=== PATIENT | male | born 2000 | race Caucasian/White ===

== ENCOUNTER 2021-07-11 15:41 | Emergency (ER) | payer OTHER, SELFPAY ==
[2021-07-11 15:48] VITALS: BP 129/77; PULSE 66; RESP 16; TEMP 36.4; O2SAT 100
--- NOTE | 2021-07-11 16:44 | ED.URI ---
HPI - URI/Sore Throat General Chief Complaint: Upper Respiratory Infection Stated Complaint: Sore Throat/Vomiting Time Seen by Provider: 07/11/21 16:15 Source: patient, RN notes reviewed and old records reviewed Mode of arrival: ambulatory Limitations: no limitations History of Present Illness HPI Narrative: 20-year-old male who presents to [facility] with 5 to 6 days of sore throat and left ear discomfort some nasal drainage and intermittent fevers up to 100.8. Patient states that he does have some upper epigastric discomfort and has been told in the past that he has an ulcer and does take Prilosec daily, has a history of anxiety is on citalopram and Vistaril.He is a daily tobacco user of 1 1/2 packs of cigarettes daily and did quit cigarettes for a while and started vaping but went back to cigarettes. Patient states that he does have some intermittent nausea with vomiting, denies any blood or bilious emesis. Patient reports that he has not taken any OTC meds for his sore throat or reported fevers. MD elicited complaint: sore throat Onset (ago): day(s) (5-6) Consistency: constant Description of mucous: clear Able to tolerate fluids by mouth: Yes Exacerbating factors: swallowing Related Data Home Medications Medication Instructions Recorded Confirmed citalopram 20 mg PO DAILY 07/11/21 07/11/21 hydroxyzine HCl 25 mg PO TID 07/11/21 07/11/21 Allergies Allergy/AdvReac Type Severity Reaction Status Date / Time No Known Allergies Allergy Verified 07/11/21 16:45 Review of Systems Review of Systems: CONSTITUTIONAL:reports fever, chills, or sweats. EYES: Denies visual changes, redness, or discharge. ENT: reports rhinorrhea, congestion, sore throat, left otalgia. CARDIOVASCULAR: Denies chest pain, palpitations, or edema. RESPIRATORY: Denies cough or dyspnea. GASTROINTESTINAL:reports some epigastric discomfort no other abdominal pain,positive for complaints of nausea, vomiting, no diarrhea. GENITOURINARY: Denies dysuria or hematuria. SKIN: Denies rash or itching. MUSCULOSKELETAL: Denies back pain, joint pain, or myalgia. NEUROLOGIC: Denies headache, numbness, or weakness. PSYCHIATRIC: Positive for anxiety or depression. All systems reviewed & are unremarkable except as noted in HPI and below PMFSH Past Medical History Medical History (Updated 07/12/21 @ 11:23 by Ngozi Shell NP) Anxiety Injury of spleen football not removed Social History Social History (Updated 07/12/21 @ 11:15 by Ngozi Shell NP) Smoking status: Current every day smoker Tobacco type: cigarettes Alcohol intake: unknown Substance use: unknown Living arrangements: with family Gender identity (if verbalized by the patient): Male Comments At time of signature, agree with nursing past medical, surgical, social and family history. There is no relevant family history pertinent to the presenting complaint Exam Narrative: GENERAL: Well-appearing, well-nourished, and in no acute distress. HEAD: Normocephalic, atraumatic. EYES: PERRLA and EOMI. ENT: Nares with minimal redness some clear rhinorrhea no epistaxis. Mucous membranes moist.TM's normal with good light reflex, throat red with no lesions or exudates, mild tonsil swelling report increase pain with swallowing. NECK: Supple.no lymphadenopathy CHEST: Clear to auscultation. No respiratory distress.SAO2 100% on room air HEART: Regular rate and rhythm. No murmur heard. Normal peripheral pulses. ABDOMEN: Soft, nontender on palpation, nondistended, normal active bowel sounds.no CVA tenderness EXTREMITIES: Normal range of motion. No edema. SKIN: Warm, dry, no rash. NEURO: No focal deficits. Alert and oriented x3. Course Course Level of Care: Express Care Visit Vital Signs Vital signs: Vital Signs Temperature 36.4 C L 07/11/21 15:48 Pulse Rate 66 07/11/21 15:48 Respiratory Rate 16 07/11/21 15:48 Blood Pressure 129/77 07/11/21 15:48 Pulse Oximetry 100 07/11/21 15:48
== END 2021-07-11 17:09 | disposition home or self-care (01) ==
PROVIDERS: Emergency Provider Registered Nurse; PCP Physician Assistant
DX: J06.9 Acute upper respiratory infection, unspecified (principal); J02.9 Acute pharyngitis, unspecified; R11.2 Nausea with vomiting, unspecified; F17.210 Nicotine dependence, cigarettes, uncomplicated; F41.9 Anxiety disorder, unspecified
CPT/HCPCS: 87081; 87880; 99203; G0463

== ENCOUNTER 2024-04-22 13:30 | Emergency (ER) | payer OTHER, SELFPAY ==
[2024-04-22 13:35] VITALS: BP 156/78; PULSE 72; RESP 16; TEMP 37.2; O2SAT 98
--- NOTE | 2024-04-22 14:00 | ED.NAVMDI ---
HPI - Nausea/Vomiting/Diarrhea General Chief complaint: Nausea/Vomiting/Diarrhea Stated complaint: nausea Time Seen by Provider: 04/22/24 14:00 Source: patient and RN notes reviewed Mode of arrival: ambulatory Limitations: no limitations History of Present Illness HPI Narrative: [age] year old male presented for complaint of nausea and vomiting. Onset yesterday. Reports mild symptoms today; vomited some bile. He endorses a history of nausea and vomiting which he says has been improved for a while. He had endoscopy in March, and was told due to food contents in the stomach, he needs to have another in June. Patient denies abdominal pain, fever, hematochezia or melena. Has not tried to eat today. Smokes marijuana. Related Data Home Medications ?Medication ?Instructions ?Recorded ?Confirmed ?Last Taken ?Type hydroxyzine HCl 25 mg tablet mg 04/22/24 Unknown History Allergies Allergy/AdvReac Type Severity Reaction Status Date / Time No Known Allergies Allergy Verified 04/22/24 13:40 Review of Systems Review of Systems: CONSTITUTIONAL: Denies body aches, fever, chills ENT: Denies rhinorrhea, congestion CARDIOVASCULAR: Denies chest pain, palpitations, or edema. RESPIRATORY: Denies cough or dyspnea. GASTROINTESTINAL: Endorses abdominal pain, nausea, vomiting, diarrhea. Denies hematochezia, melena, hematemesis GENITOURINARY: Denies dysuria, hematuria, or CVA tenderness. SKIN: Denies rash, itching, or wounds. MUSCULOSKELETAL: Denies back pain, joint pain, or myalgia. NEUROLOGIC: Denies headache, numbness, tingling, or weakness. All systems reviewed & are unremarkable except as noted in HPI and below PMFSH Past Medical History Medical History Trichotillomania OCD (obsessive compulsive disorder) Peptic ulcer Chronic GERD Injury of spleen football not removed Anxiety Family History Family History Father Asthma Sibling Asthma Depression Grandparent Asthma Hypertension Grandparent Diabetes mellitus Depression Social History Social History (Updated 04/22/24 @ 14:15 by Linnette Zuluaga APRN) Smoking status: Current every day smoker Tobacco type: cigarettes Alcohol intake: current Drinks per week: 24 Alcohol use details: 12 pack couple times a week Substance use: current Substance use type: marijuana Lack of Transportation: No Lack of Food: Never True Current Housing: I Have Housing Concerned About Future Housing: No Difficulty Paying Gas/Electric Bills: No Difficulty Paying for Meds: No Currently Unemployed: No Education: High School Diploma/GED Difficulty w/ Childcare or Family Care: No Living arrangements: with family Occupation/Education: occupation 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 Please see nursing chart for further information. There is no relevant family history pertinent to the presenting complaint Exam Narrative: GENERAL: Well-appearing, and in no acute distress. EYES: EOMI. Conjunctivae normal. ENT: Mucous membranes pink and moist. CHEST: No respiratory distress. Clear to auscultation. HEART: Regular rate and rhythm. No murmur appreciated. Normal peripheral pulses. ABDOMEN: abd soft, nondistended, normal active bowel sounds. Tender across lower abdomen; No guarding, rebound tenderness, asymmetry EXTREMITIES: Normal range of motion. No edema. SKIN: Warm, dry, no rash. Capillary refill normal. Normal skin turgor. NEURO: No focal deficits. Alert and oriented x3. PSYCH: Normal affect. Course Course Emergency Course: Patient is aware of diagnosis, understands and agrees to treatment plan. Anticipatory guidance given. Patient agrees to follow-up as directed and is aware of reasons to seek care at the emergency department. Portions of this record may have been created with voice recognition software Level of Care: Express Care Visit Vital Signs Vital signs: Vital Signs Temperature 98.9 F 04/22/24 13:35 Pulse Rate 72 04/22/24 13:35 Respiratory Rate 16 04/22/24 13:35 Blood Pressure 156/78 H 04/22/24 13:35 Pulse Oximetry 98 04/22/24 13:35 Oxygen Delivery Room Air 04/22/24 13:35 Temperature 98.9 F 04/22/24 13:35 Pulse Rate 72 04/22/24 13:35 Respiratory Rate 16 04/22/24 13:35 Blood Pressure 156/78 H 04/22/24 13:35 Pulse Oximetry 98 04/22/24 13:35 Oxygen Delivery Room Air 04/22/24 13:35 MDM - Nausea/Vomiting/Diarrhea MDM Narrative Medical decision making narrative: Discussed physical exam findings, rx ondansetron. He says he has 'stomach medicine' at the house, he thinks it is prilosec or pepcid and will resume taking the medicine. Advised supportive measures and signs/symptoms to go to the ER. Pt is appropriate for outpt treatment and f/u. Differential Diagnosis Differential diagnosis: Likely food poisoning, gastroenteritis, drug-induced nausea and vomiting, dehydration and other Discharge Plan Discharge Clinical Impression: Nausea & vomiting Patient Disposition: Home, Self-Care Condition: Stable Instructions: Antibiotic Form, Acute Nausea and Vomiting (ED) Additional Instructions: Stay hydrated. Take small sips of fluid containing electrolytes frequently. Clear liquids (broth, jello, tea, sprite, pedialyte) slowly advance as tolerated to [place] foods (bananas, rice, applesauce, toast, crackers) Avoid fatty, greasy, fried or spicy foods. Limit dairy until symptoms are improved. Ondansetron as needed for nausea. Take the medicine previously prescribed to you for stomach. You should go to the hospital if you experience persistent nausea and vomiting that does not resolve and does not allow you to tolerate any food or fluids, fevers, increasing abdominal pain, persistent diarrhea, or for any other concerns. Follow up with primary care provider in 3 days. Patient Language: Swedish Prescriptions: New ondansetron 4 mg tablet,disintegrating 4 mg PO Q8H PRN (Reason: nausea and vomiting) Qty: 12 0RF No Action hydroxyzine HCl 25 mg tablet omeprazole 40 mg capsule,delayed release(DR/EC) 40 mg PO DAILY Qty: 30 1RF Follow-up/Referrals: PHYSICIAN,TIRE INSPECTOR [Primary Care Provider] - Stand Alone Forms: Work/School Release IP Time of Disposition: 14:09
== END 2024-04-22 14:15 | disposition home or self-care (01) ==
PROVIDERS: Emergency Provider Nurse Practitioner Family
DX: R11.2 Nausea with vomiting, unspecified (principal); F17.210 Nicotine dependence, cigarettes, uncomplicated; K21.9 Gastro-esophageal reflux disease without esophagitis
CPT/HCPCS: 99213; G0463

== ENCOUNTER 2024-06-04 16:01 | Emergency (ER) | payer OTHER, SELFPAY ==
[2024-06-04 16:06] VITALS: BP 149/84; PULSE 73; RESP 20; TEMP 36.6; O2SAT 100
[2024-06-04 16:25] LABS: EDSTREPNEGPOS1 Negative (Negative)
[2024-06-04 16:34] LABS: EDCOVIDSCREEN Negative (Negative); EDINFLUASCREEN Negative (Negative); EDINFLUBSCREEN Negative (Negative)
--- OUTSIDE RECORDS SUMMARY | 2024-06-04 16:48 | XMS_ITS | Clinical Summary ---
Author Organization [facility] Address [address] [place] [address] Phone Care Team Providers Care Solar Energy Systems Designer Name Role Phone Latasha Bates [facility] Primary Care Pro vider Allergies No known active allergies Medications omeprazole (PriLOSEC) 20 MG CAPSULE DELAYED RELEASE Take 2 Capsules by mouth daily. 120 Capsule 3 08/29/2023 Active famotidine (PEPCID) 20 MG Tablet Take 1 Tablet by mouth 2 times daily. 90 Tablet 3 08/29/2023 Active hydrOXYzine (ATARAX) 25 MG Tablet TAKE 1 TABLET BY MOUTH EVERY 6 HOURS NEEDED FOR ANXIETY 120 Tablet 1 03/04/2024 Active Active Problems Problem Noted Date Diagnosed Date Suicidal thoughts 08/29/2023 Self-mutilation 08/29/2023 Coffee ground emesis 08/29/2023 Gastric ulcer 08/29/2023 Gastroesophageal reflux disease 08/29/2023 Sleep deprivation 08/29/2023 Anxiety Depressed Ruptured spleen Immunizations Immunization Administration Dates Next Due DTAP VACCINE 09/19/2003, 1,03/22/1999,01/18,1998 Hepatitis A Vaccine 09/06/2013 Hepatitis A Vaccine, Pediatric/adolescent, 2 Dose Schedule 09/04/2012 Hepatitis B Vaccine, Pediatric/adolescent 10/15/1999,06/26/1999,1998 Hib Vaccine,unspecified Formulation 12/22,03/22/1999,01/18/1999,11/16 Human Papillomavirus Vaccine (HPV), quadrivalent 03/18/2013,03/15/2013,11/13/2012,09/04 Inactivated Polio Vaccine 09/19/2003,,01/18/1999,11/16 Influenza Vaccine Nasal 01/12/2010 Influenza Vaccine Quadrivalent Nasal 11/05/2013, 11/13/2012 Influenza Vaccine, Quadrivalent, PF 11/24/2015 Influenza Vaccine,unspecifie d Formulation 02/07/2007,02/28/2006,01/25/2006 MMR Vaccine 09/20/2002,01/17/2000 Meningococcal C Conjugate Vaccine 2009 Meningococcal MCV4O 09/30/2014 Pneumococcal Vaccine Peds - 7 Valent 10/16/2000 TDAP Vaccine 2009 Varicella Vaccine Live 09/18/2007,09/20/2002 Family History Medical History Relation Name Comments Diabetes Mother Hypertension Mother Relation Name Status Comments Father Alive Mother Alive Social History Tobacco Use Types Packs/Day Years Used Date Smoking Tobacco: Every Day Cigarettes Smokeless Tobacco: Never Tobacco Cessation:Ready to Q uit: No; Counseling Given: No Alcohol Use Standard Drinks/Week Comments Yes 0 (1 standard drink = 0.6 oz pur e alcohol) occasionally Sex and Gender Information Value Date Recorded Sex Assigned at Not on file Legal Sex Male 5:43 PM CDT Gender Identity Not on file Sexual Orientation Not on file Last Filed Vital Signs Vital Sign Reading Time Taken Comments Blood Pressure 114/78 10/13/2023 8:39 AM CDT Pulse 76 10/13/2023 8:39 AM CDT Temperature 36.3 C (97.3 F) 10/13/2023 8:39 AM CDT Respiratory Rate 12 10/13/2023 8:39 AM CDT Oxygen Saturation 98% 10/13/2023 8:39 AM CDT Inhaled Oxygen Concentration - - Weight 83 kg (183 lb) 10/13/2023 8:39 AM CDT Height 180.3 cm (5' 11 ) 08/29/2023 8:24 AM CDT Body Mass Index 25.52 08/29/2023 8:24 AM CDT Plan of Treatment Health Maintenance Due Date Last Done Comments Hepatitis C Virus (HCV) Screening 1998 Pneumococcal Immunization Combined (1 of 2 - PCV) 2017 10/16/2000 DTaP/Tdap/Td Immunization (7 - Td or Tdap) 09/17/2019 2009, 09/19/2003, 04/17/2000, Additional history exists SARS-COV-2 Immunization ( - 2023- season) 2023 Influenza Immunization (Season Ended) 2024 11/24/2015, 11/05/2013, 11/13/2012, Additional history exists Respiratory Syncytial Virus (RSV) Immunization (Adult) (1 - 1-dose 75+ series) 2073 Hepatitis B Immunization Completed 000, 06/26/1999, 1998 TdaP Immunization Discontinued 2009 Human Papillomavirus (HPV) Immunization Completed 03/18/2013, 03/15/2013, 11/13/2012, Additional history exists Meningococcal Immunization (ACWY) Completed 09/30/2014 Rotavirus Immunization Aged Out No lo nger eligible based on patient's age to complete this topic Procedures Procedure Name Priority Date/Time Associated Diagnosis Comments EGD 04/03/2024 12:00 AM SUPPLY ROOM CLERK from Last 3 Months Results * EGD (04/03/2024 12:00 AM SUPPLY ROOM CLERK) Anatomical Region Laterality Modality Endoscopy 04/03/2024 Latasha Bates PAC GI PROCEDURE REAL HERBERT Final Result from Last 3 Months Insurance [employer] SOI Member Subscriber Plan / Payer (Ef fective 2023-Present) Name:Matt Flowers Jr. Relation to Subscriber:Self Name:Matt Flowers Jr. Payer ID:[id number] (NAIC) Type:Not on file Address: [facility] [id number] [place] [id number] Care Teams Solar Energy Systems Designer Relationship Specialty Start Date End Date Latasha Bates, THOMAS [address] [address] PCP - General Physician Drivers License Examiner 08/29/23
--- OUTSIDE RECORDS SUMMARY | 2024-06-04 16:48 | XMS_ITS | Clinical Summary ---
Author Organization [facility] Address [address] [place] [address] Care Team Providers Care Real Estate Asset Manager Name Role Phone Diandra Galvan MD Primary Care Provider [phone] Source Comments [facility],non-owned Affiliates and Associated Physician Practices is amultiple site organization consisting of ambulatory clinics and hospital sitesin [place], [place], [place] and [place]. This disclosure is being madepursuant to the Care Everywhere program and may not contain all information available regarding this patient. Last updated 17.[facility] Allergies No known active allergies Medications * Be aware that medications may not be up to date on this document. Alwaysverify current medications with the patient. No known medications Active Problems Problem Noted Date Diagnosed Date Martínez's cyst of knee, right 03/23/2018 Acute pain of right knee 03/23/2018 Social History Tobacco Use Types Packs/Day Years Used Date Smoking Tobacco: Every Day Cigarettes 2 3 Smokeless Tobacco: Never Sex and Gender Information Value Date Recorded Sex Assigned at Not on file Legal Sex Male 10:44 AM CDT Gender Identity Not on file Sexual Orientation Not on file Last Filed Vital Signs Vital Sign Reading Time Taken Comments Blood Pressure 122/62 03/23/2018 10:42 AM UI ARCHITECT Pulse 76 03/23/2018 10:42 AM UI ARCHITECT Temperature 36.7 C (98 F) 03/23/2018 10:42 AM UI ARCHITECT Respiratory Rate - - Oxygen Saturation - - Inhaled Oxygen Concentration - - Weight 79.6 kg (175 lb 8 oz) 03/23/2018 10:42 AM UI ARCHITECT Height 180.3 cm (5' 11 ) 03/23/2018 10:42 AM UI ARCHITECT Body Mass Index 24.48 03/23/2018 10:42 AM UI ARCHITECT Plan of Treatment Health Maintenance Due Date Last Done Comments HIV SCREENING 2013 HPV VACCINE (1 - Male 3-dose series) 2013 HEPATITIS C SCREENING 09/11/2016 DTAP/TDAP/TD VACCINES (1 - Tdap) 2017 HEPATITIS B VACCINE (1 of 3 - 19+ 3-dose series) 2017 COVID-19 VACCINE (1 - 2023-2 5 season) 2023 DEPRESSION SCREENING 02/21/2024 INFLUENZA VACCINE (Season Ended) 2024 ZOSTER VACCINE (1 of 2) 2048 HIB VACCINE Aged Out No longer eligi ble based on patient's age to complete this topic MENINGOCOCCAL (Group B) VACC INE SHARED DECISION-MAKING Aged Out No longer eligibl e based on patient's age to complete this topic MENINGOCOCCAL GROUPS A/C/Y/W VACCINE Aged Out No longer eligible b ased on patient's age to complete this topic PNEUMOCOCCAL VACCINE Aged Out No long er eligible based on patient's age to complete this topic [place] [address] [place] [address] [facility] Care Teams Real Estate Asset Manager Relationship Specialty Start Date End Date Diandra Galvan MD [address] [address] PCP - General 03/23/18
--- NOTE | 2024-06-04 16:51 | ED_ITS ---
HPI - URI/Sore Throat General Chief Complaint: Upper Respiratory Infection Stated Complaint: n/v/sore throat/chest hurts when coughing Time Seen by Provider: 06/04/24 16:30 Source: patient, RN notes reviewed and old records reviewed Mode of arrival: ambulatory Limitations: no limitations History of Present Illness HPI Narrative: 23 year old male presents to [facility] with complaints of vomiting this morning but has not had any further emesis since then. He states that he also started with sore throat, cough and chest congestion this morning. Patient reports that his mucous is clear in color when he is able to expectorate phlegm. Patient reports general malaise, denies any chills or body aches reports no known fevers. Patient reports he works [employer] at [employer] and had to call off he needs work note. MD elicited complaint: cough and sore throat Pertinent past history: other (history of strep throat, GERD) Onset (ago): day(s) (today this morning) Severity: moderate Description of mucous: clear Able to tolerate fluids by mouth: Yes Treatments prior to arrival: none Related Data Home Medications ?Medication ?Instructions ?Recorded ?Confirmed ?Last Taken ?Type hydroxyzine HCl 25 mg tablet mg 04/22/24 Unknown History Allergies Allergy/AdvReac Type Severity Reaction Status Date / Time No Known Allergies Allergy Verified 06/04/24 16:18 Review of Systems Review of Systems: CONSTITUTIONAL: Reports malaise, no chills, sweats, or fever. EYES: Denies visual changes, redness, or discharge. ENT: Reports rhinorrhea, congestion, no sinus pain,no otalgia and positive for sore throat. CARDIOVASCULAR: Denies chest pain, palpitations, or edema. RESPIRATORY: Reports cough.? Denies dyspnea. GASTROINTESTINAL: Denies abdominal pain, episode of nausea with vomiting this morning, no diarrhea SKIN: Denies rash or itching. MUSCULOSKELETAL: Denies myalgia. NEUROLOGIC: Denies headache. All systems reviewed & are unremarkable except as noted in HPI and below PMFSH Past Medical History Medical History GERD (gastroesophageal reflux disease) Trichotillomania OCD (obsessive compulsive disorder) Peptic ulcer Chronic GERD Injury of spleen football not removed Anxiety Family History Family History Father Asthma Sibling Asthma Depression Grandparent Asthma Hypertension Grandparent Diabetes mellitus Depression Social History Social History Smoking status: Current every day smoker Tobacco type: e-cigarettes/vaping Additional smoking assessment comments: former cigarette smoker now vapes Alcohol intake: current Drinks per week: 24 Alcohol use details: 12 pack couple times a week Substance use: former Substance use type: marijuana Lack of Transportation: No Lack of Food: Never True Current Housing: I Have Housing Concerned About Future Housing: No Difficulty Paying Gas/Electric Bills: No Difficulty Paying for Meds: No Currently Unemployed: No Education: High School Diploma/GED Difficulty w/ Childcare or Family Care: No Living arrangements: with family Occupation/Education: occupation Additional occupation/education comments: [employer] Gender identity (if verbalized by the patient): Male Agree to blood products: Yes Comments At time of signature, agree with nursing past medical, surgical, social and family history. There is no relevant family history pertinent to the presenting complaint Exam Narrative: GENERAL: Well-appearing, well-nourished, and in no acute distress. HEAD: Normocephalic EYES: PERRLA, conjunctivae clear ENT: Nares clear, turbinates edematous and erythematous, clear discharge. Mucous membranes moist. TM pearly young with dull light reflex bilaterally; no tragal t enderness. Oropharynx erythematous without lesions. Tonsils red enlarged and without exudate, no drooling, no hoarseness, no trismus, uvula midline.post nasal drainage noted NECK: Supple. No lymphadenopathy CHEST: Clear to auscultation, breath sounds equal. No wheezing, rhonchi, rales, or stridor. No respiratory distress, speaks in full sentences.cough noted SAO2 100% on room air HEART: Regular rate and rhythm. No murmur heard. SKIN: Warm, dry, no rash. NEURO: Alert and oriented x3. PSYCH: Normal mood and affect Course Course Emergency Course: Patient is aware of diagnosis, understands and agrees to treatment plan.? Anticipatory guidance given.? Patient agrees to follow-up as directed and is aware of reasons to seek care at the emergency department. Portions of this record may have been created with voice recognition software Level of Care: Express Care Visit Vital Signs Vital signs: Vital Signs Temperature 36.6 C 06/04/24 16:06 Pulse Rate 73 06/04/24 16:06 Respiratory Rate 20 06/04/24 16:06 Blood Pressure 149/84 H 06/04/24 16:06 Pulse Oximetry 100 06/04/24 16:06 Oxygen Delivery Room Air 06/04/24 16:06 Temperature 36.6 C 06/04/24 16:06 Pulse Rate 73 06/04/24 16:06 Respiratory Rate 20 06/04/24 16:06 Blood Pressure 149/84 H 06/04/24 16:06 Pulse Oximetry 100 06/04/24 16:06 Oxygen Delivery Room Air 06/04/24 16:06 Reviewed MDM - URI/Sore Throat MDM Narrative Medical decision making narrative: Differential diagnosis considered: Garcia virus, strep pharyngitis, allergic rhinitis, upper respiratory tract infection, sinusitis, rhinosinusitis, nasophar yngitis. viral pharyngitis, otitis media, otitis externa, pneumonia, bronchitis, viral cough syndrome, viral syndrome, and influenza.? Exam findings show no acute concerns or changes; patient is non-toxic appearing and is in no distress.? Patient is appropriate for outpatient treatment and follow-up. Differential Diagnosis Differential diagnosis: Likely upper respiratory infection, viral infection, pharyngitis and other (strep pharyngitis, cough and congestion, nausea with vomiting) Medical Records Attestation: I reviewed the patient's medical records. Lab Data Attestation: I reviewed the patient's lab results. Lab results narrative: Covid antigen negative, Influenza A negative, Influenza B negative, strep screen negative, culture sent Labs: Lab Results 06/04/24 Range/Units 16:16 POC Influenza A Ag Negative (Negative) POC Influenza B Ag Negative (Negative) POC SARS CoV-2 Ag Negative (Negative) POC Grp A Strep Screen Negative (Negative) reviewed Critical Care Time Critical Care Time Critical Care Time: No Discharge Plan Discharge Clinical Impression: URI, acute Acute pharyngitis Qualifiers: Pharyngitis/tonsillitis etiology: unspecified etiology Qualified Code(s): J02.9 - Acute pharyngitis, unspecified Nausea & vomiting Qualifiers: Vomiting type: unspecified Qualified Code(s): R11.2 - Nausea with vomiting, unspecified Patient Disposition: Home Condition: Stable Instructions: Antibiotic Form, Pharyngitis (ED) Additional Instructions: Increase fluids especially juices and water [id number] cough and cold medicine of your choice for your symptoms Tylenol or ibuprofen for any fever pain Continue your nausea medication for any nausea and vomiting heat to the face 20-30 minutes 4-6 times a day for pain Salt water gargles, throat lozenges or throat sprays as desired Antibiotic as directed--Your strep test today was negative. A throat culture will be sent to the laboratory for further testing. if culture is negative you can stop the oral antibiotic, If your symptoms persist, change or worsen significantly before you can contact your personal physician then please, without delay, go to the emergency department for further evaluation. Follow-up with PCP in 7-10 days or sooner if needed Follow up with PCP soon in regards to your blood pressure which is elevated above threshold for referral. Blood pressure above 120/80 may indicate pre- hypertension. 149/84 Patient Language: Indonesian Prescriptions: New amoxicillin 500 mg capsule 500 mg PO Q12H Qty: 20 0RF No Action hydroxyzine HCl 25 mg tablet omeprazole 40 mg capsule,delayed release(DR/EC) 40 mg PO DAILY Qty: 30 1RF Follow-up/Referrals: UNKNOWN,DOCTOR [Primary Care Provider] - Stand Alone Forms: Work/School Release IP Time of Disposition: 17:12 Quality [place] Coma Scale Eyes: Open Verbal: Oriented and Alert Motor: Follows Commands Robin Coma Total Score: 15
== END 2024-06-04 17:18 | disposition home or self-care (01) ==
PROVIDERS: Emergency Provider Registered Nurse
DX: J06.9 Acute upper respiratory infection, unspecified (principal); J02.9 Acute pharyngitis, unspecified; R11.2 Nausea with vomiting, unspecified; Z20.822 Contact with and (suspected) exposure to COVID-19; F17.290 Nicotine dependence, other tobacco product, uncomplicated; K21.9 Gastro-esophageal reflux disease without esophagitis; F63.3 Trichotillomania
CPT/HCPCS: 87081; 87426; 87804; 87880; 99213; G0463

== ENCOUNTER 2024-09-03 11:16 | Emergency (ER) | payer OTHER, SELFPAY ==
[2024-09-03 11:24] VITALS: BP 128/82; PULSE 79; RESP 18; TEMP 36.8; O2SAT 100
--- OUTSIDE RECORDS SUMMARY | 2024-09-03 11:32 | XMS_ITS | Encounter Summary ---
Author Organization [facility] Address [address] [place] [address] Phone Care Team Providers Care Administrator Name Role Phone Latasha Bates PAC Primary Care Pro vider Encounter Details Date Type Department Care Team (Late st Contact Info) Description 07/16/2024 Results Follow-Up [facility] - Primary [facility] Access Clinic [address] [address] Latasha Bates, PAC [address] [place] [address] EGD Social History Tobacco Use Types Packs/Day Years Used Date Smoking Tobacco: Every Day Cigarettes Smokeless Tobacco: Never Alcohol Use Standard Drinks/Week Comments Yes 0 (1 standard drink = 0.6 oz pur e alcohol) occasionally Sex and Gender Information Value Date Recorded Sex Assigned at Not on file Legal Sex Male 5:43 PM CDT Gender Identity Not on file Sexual Orientation Not on file documented as of this encounter Miscellaneous Notes * Telephone Encounter - Hortencia Calhoun CMA - 07/17/2024 2:02 PM CDT No voice mail documented in this encounter Plan of Treatment Not on file documented as of this encounter Visit Diagnoses Not on filedocumented in this encounter Care Teams Administrator Relationship Specialty Start Date End Date Latasha Bates [facility] [address] [place] [address] PCP - General Physician Hardwood Finisher 08/29/23 documented as of this encounter
--- OUTSIDE RECORDS SUMMARY | 2024-09-03 11:32 | XMS_ITS | Clinical Summary ---
Author Organization [facility] Address [address] [place] [address] Care Team Providers Care Trial Manager Name Role Phone Diandra Galvan MD Primary Care Provider [phone] Source Comments [facility],non-owned Affiliates and Associated Physician Practices is amultiple site organization consisting of ambulatory clinics and hospital sitesin [place], [place], [place] and [place]. This disclosure is being madepursuant to the Care Everywhere program and may not contain all information available regarding this patient. Last updated 17.[facility] Allergies No known active allergies Medications * [...] Comments Blood Pressure 122/62 03/23/2018 10:42 AM BUSINESS APPLICATIONS MANAGER Pulse 76 03/23/2018 10:42 AM BUSINESS APPLICATIONS MANAGER Temperature 36.7 C (98 F) 03/23/2018 10:42 AM BUSINESS APPLICATIONS MANAGER Respiratory Rate - - Oxygen Saturation - - Inhaled Oxygen Concentration - - Weight 79.6 kg (175 lb 8 oz) 03/23/2018 10:42 AM BUSINESS APPLICATIONS MANAGER Height 180.3 cm (5' 11) 03/23/2018 10:42 AM BUSINESS APPLICATIONS MANAGER Body Mass Index 24.48 03/23/2018 10:42 AM BUSINESS APPLICATIONS MANAGER Plan of Treatment Health Maintenance Due Date Last Done Comments HIV SCREENING 2013 HPV VACCINE (1 - Male 3-dose series) 2013 HEPATITIS C SCREENING 09/11/2016 DTAP/TDAP/TD VACCINES (1 - Tdap) 2017 HEPATITIS B VACCINE (1 of 3 - 19+ 3-dose series) 2017 COVID-19 VACCINE (1 - 2023-2 5 season) 2023 DEPRESSION SCREENING 02/21/2024 INFLUENZA VACCINE (#1) 2024 ZOSTER VACCINE (1 of 2) 2048 [...] patient's age to complete this topic [place] [address] [place] [address] [facility] Care Teams Trial Manager Relationship Specialty Start Date End Date Diandra Galvan MD [address] [address] PCP - General 03/23/18
--- OUTSIDE RECORDS SUMMARY | 2024-09-03 11:32 | XMS_ITS | Clinical Summary ---
Author Organization [facility] Address [address] [place] [address] Phone Care Team Providers Care Automobile Insurance Claim Examiner Name Role Phone Latasha Bates Primary Care Pro vider Allergies No known [...] Sleep deprivation 08/29/2023 Anxiety Depressed Ruptured spleen Encounters Date Type Department Care Team Description 07/16/2024 Results Follow-Up [facility] - Primary Care Access Clinic [facility] [address] [place] [address] Latasha Bates, THOMAS EGD from Last 3 Months Immunizations Immunization Administration Dates Next Due DTAP [...] 8:39 AM CDT Height 180.3 cm (5' 11) 08/29/2023 8:24 AM CDT Body Mass Index 25.52 08/29/2023 8:24 AM CDT Plan of Treatment Health Maintenance Due Date Last Done Comments Hepatitis C Virus (HCV) Screening 1998 Pneumococcal Immunization Combined (1 of 2 - PCV) 2017 10/16/2000 DTaP/Tdap/Td Immunization (7 - Td or Tdap) 09/17/2019 2009, 09/19/2003, 04/17/2000, Additional history exists SARS-COV-2 Immunization ( - 2023- season) 2023 Influenza Immunization (#1) 10/21/2024/05/2015, 11/05/2013, 11/13/2012, Additional history exists Respiratory Syncytial [...] Name Priority Date/Time Associated Diagnosis Comments EGD 07/02/2024 12:00 AM CDT from Last 3 Months Results * EGD (07/02/2024 12:00 AM CDT) Anatomical Region Laterality Modality Endoscopy 07/02/2024 Latasha Bates PAC GI PROCEDURE ORDZita GODINEZ Final Result from Last 3 Months Insurance [employer] Care Teams Automobile Insurance Claim Examiner Relationship Specialty Start Date End Date Latasha Bates PAC [address] [place] [phone] PCP - General Physician Fry Cook 08/29/23
[2024-09-03] MEDS: KETOROLAC (*BKC) 60 MG/2 ML VIAL IM (11:48)
--- NOTE | 2024-09-03 12:05 | ED.HA ---
HPI - Headache General Chief Complaint: Headache Stated Complaint: Headache Time Seen by Provider: 09/03/24 11:20 Source: patient and RN notes reviewed Mode of arrival: ambulatory Limitations: no limitations History of Present Illness HPI Narrative: 23-year-old male presents Express Care complaining of headache since this morning. Patient said he had nausea vomiting yesterday morning with said since then that has subsided. Today patient will up with a headache the reports between his eyes. Patient denies any vision changes, slurred speech, focal weakness, dizziness, lightheadedness, loss of conscious, any other symptoms. And took a dose of Tylenol without relief. Patient says he has a history of migraines. Patient reports his headaches a 08/29. Patient denies any significant past medical problems. Related Data Home Medications ?Medication ?Instructions ?Recorded ?Confirmed ?Last Taken ?Type hydroxyzine HCl 25 mg tablet mg 04/22/24 Unknown History Allergies Allergy/AdvReac Type Severity Reaction Status Date / Time No Known Allergies Allergy Verified 06/04/24 16:18 Review of Systems Review of Systems: CONSTITUTIONAL: Denies fever, chills, or sweats. EYES: Denies visual changes, blurry vision, redness, or discharge. ENT: Denies rhinorrhea, congestion, sore throat, or otalgia. CARDIOVASCULAR: Denies chest pain, palpitations, dizziness, lightheadedness, or edema. RESPIRATORY: Denies cough or dyspnea. GASTROINTESTINAL: Denies abdominal pain, nausea, vomiting, or diarrhea. GENITOURINARY: Denies dysuria or hematuria. SKIN: Denies rash or itching. MUSCULOSKELETAL: Denies back pain, joint pain, or myalgia. NEUROLOGIC: Positive for headache. Negative for focal weakness, loss of consciousness, seizures, Numbness, or weakness. PSYCHIATRIC: Denies anxiety or depression. All other systems reviewed are negative, except as documented in HPI. [facility], [facility] Past Medical History Medical History GERD (gastroesophageal reflux disease) Trichotillomania OCD (obsessive compulsive disorder) Peptic ulcer Chronic GERD Injury of spleen football not removed Anxiety Family History Family History Father Asthma Sibling Asthma Depression Grandparent Asthma Hypertension Grandparent Diabetes mellitus Depression Social History Social History Smoking status: Current every day smoker Tobacco type: e-cigarettes/vaping Additional smoking assessment comments: former cigarette smoker now vapes Alcohol intake: current Drinks per week: 24 Alcohol use details: 12 pack couple times a week Substance use: former Substance use type: marijuana Lack of Transportation: No Lack of Food: Never True Current Housing: I Have Housing Concerned About Future Housing: No Difficulty Paying Gas/Electric Bills: No Difficulty Paying for Meds: No Currently Unemployed: No Education: High School Diploma/GED Difficulty w/ Childcare or Family Care: No Living arrangements: with family Occupation/Education: occupation Additional occupation/education comments: [employer] Gender identity (if verbalized by the patient): Male Agree to blood products: Yes Comments At the time of my signature, I reviewed and agree with the nursing past medical, surgical, social, and family history. There is no relevant family history pertinent to the patient complaint. Exam Narrative: GENERAL: This is a well-nourished, well-developed adult, in no apparent distress. They are non ill-appearing, nontoxic appearing. HEAD: normocephalic, atraumatic. EYES: Sclera clear/white. Conjunctiva normal. Vision is grossly intact. Extraocular movements intact. Pupils PERRLA EARS: External ears normal, Hearing grossly intact. NOSE: External nose normal THROAT: Mucous membranes moist, NECK: Neck supple, CARDIOVASCULAR: Regular rate and rhythm without murmurs, gallops, or rubs. RESPIRATORY: Clear to auscultation. Breath sounds equal bilaterally. No wheezes, rales, or rhonchi. GASTROINTESTINAL: Abdomen soft, non-tender, nondistended. Bowel sounds are active. No hepato-splenomegaly, or palpable masses. No guarding. SKIN: warm, Dry, intact with no suspicious lesions or rash, good texture and turgor. NEURO: awake, alert, and oriented to person, place and time. There were no obvious focal neurologic abnormalities. No slurred speech, no facial droop, no pronator drift. No limb ataxia. EXTREMITIES: No joint tenderness, effusion, or edema noted. Course Course Emergency Course: Portions of this record may have been created with voice recognition software Level of Care: Express Care Visit Vital Signs Vital signs: Vital Signs Temperature 98.2 F 09/03/24 11:24 Pulse Rate 79 09/03/24 11:24 Respiratory Rate 18 09/03/24 11:24 Blood Pressure 128/82 09/03/24 11:24 Pulse Oximetry 100 09/03/24 11:24 Oxygen Delivery Room Air 09/03/24 11:24 Temperature 98.2 F 09/03/24 11:24 Pulse Rate 79 09/03/24 11:24 Respiratory Rate 18 09/03/24 11:24 Blood Pressure 128/82 09/03/24 11:24 Pulse Oximetry 100 09/03/24 11:24 Oxygen Delivery Room Air 09/03/24 11:24 Reviewed MDM - Headache MDM Narrative Medical decision making narrative: Patient given a shot of Toradol for his headache and states minimal relief after 20 minutes. Patient given a shot dexamethasone. Approximately 45 minutes later patient reports headache is improving rating at 3/10. Patient denies any vision changes, photophobia, nausea vomiting or other symptoms. Recommend patient to take Tylenol today may resume Motrin tomorrow. Discussed physical exam findings. Advised supportive measures and signs/symptoms to go to the ER. Pt is appropriate for outpt treatment and f/u. Differential Diagnosis Differential diagnosis: Likely migraine, tension headache and headache Critical Care Time Critical Care Time Critical Care Time: No Discharge Plan Discharge Clinical Impression: Headache Qualifiers: Headache type: unspecified Headache chronicity pattern: acute headache Intractability: not intractable Qualified Code(s): R51.9 - Headache, unspecified Patient Disposition: Home Condition: Stable Instructions: Acute Headache (ED) Additional Instructions: Do not take any ibuprofen today because your given shot of Toradol. You were also given a shot of dexamethasone to help prevent relapse of the headache. You may resume ibuprofen tomorrow. Take Tylenol as needed today for your headache. Please follow-up with your PCP in 3-5 days. Go to ER if he develops any worsening headaches, worse headache of your life, vision changes, blurry vision, dizziness, slurred speech, one-sided weakness, loss of consciousness, seizures, or any other concerns. Patient Language: Bhutanese Prescriptions: No Action hydroxyzine HCl 25 mg tablet omeprazole 40 mg capsule,delayed release(DR/EC) 40 mg PO DAILY Qty: 30 1RF Follow-up/Referrals: UNKNOWN,DOCTOR [Primary Care Provider] - Time of Disposition: 12:20
[2024-09-03] MEDS: dexAMETHasone SOD PHOS INJ 10 MG/ML 1 ML VIAL 4 MG IM (12:13)
== END 2024-09-03 12:37 | disposition home or self-care (01) ==
DX: R51.9 Headache, unspecified (principal); F17.290 Nicotine dependence, other tobacco product, uncomplicated; K21.9 Gastro-esophageal reflux disease without esophagitis; F41.9 Anxiety disorder, unspecified
CPT/HCPCS: 96372; 99214; G0463; J1100; J1885